=== PATIENT | male | born 1985 | race Caucasian/White ===

== ENCOUNTER 2019-01-20 19:43 | Emergency (ER) | payer OTHER ==
--- NOTE | 2019-01-20 20:46 | EDM.PDOC ---
ED HPI GENERAL MEDICAL PROBLEM - General Chief Complaint: Upper Extremity Injury/Pain Stated Complaint: LEFT WOOD PIECE IN PINKY Time Seen by Provider: 01/20/19 20:00 Source of Information: Reports: Patient History Limitations: Reports: No Limitations - History of Present Illness INITIAL COMMENTS - FREE TEXT/NARRATIVE: 33 year old male present to ear with possible splinted in his left fifth digit. Splinter occurred when he was working with newer treated wood. Patient felt something sharp across the upper fifth digit. Noticed blood and thought he had a residual splinter in her hand. Patient did not see wood or a splinter but pain has continued. Patient has washed the area but did not take any medications for pain. Injury happened this afternoon. Patient's last tetanus shot was approximately 5 years ago. - Related Data Allergies Allergy/AdvReac Type Severity Reaction Status Date / Time No Known Allergies Allergy Verified 01/20/19 20:06 Home Meds: Home Meds NK [No Known Home Meds] 01/20/19 [History] Past Medical History Neurological History: Reports: Brain Injury - Past Surgical History HEENT Surgical History: Reports: Tonsillectomy GI Surgical History: Reports: Hernia, Abdominal Social & Family History - Tobacco Use Smoking Status *Q: Never Smoker Review of Systems - Review of Systems Review Of Systems: ROS reveals no pertinent complaints other than HPI. ED EXAM, GENERAL - Physical Exam Exam: See Below Exam Limited By: No Limitations General Appearance: Alert, WD/WN, No Apparent Distress Eye Exam: Bilateral Eye: EOMI Head: Atraumatic, Normocephalic Neck: Normal Inspection, Supple, Non-Tender, Full Range of Motion Respiratory/Chest: No Respiratory Distress Cardiovascular: Normal Peripheral Pulses Extremities: Other (small puncture wound extensor surface of left fifth digit with pain across MCP joint. No palpable firm straight FB noted. Offered soft tissue US. ) Neurological: Alert, Oriented, CN II-XII Intact, Normal Cognition, Normal Gait, Normal Reflexes, No Motor/Sensory Deficits ED TRAUMA EXTREMITY PROCEDURES - Additional/Other Procedure(s) Other (Free Text) Procedure(s): Soft Tissue POC Ultrasound Left Hand: No radiolucent FB noted in painful area. No air in the tissue. Shared Decision Making: Discussed risks and benefits of local anesthetic and attempting to remove a FB which is no palpable or seen on ultrasound. I do not believe the pain to look of a possible wood FB would be beneficial at this time. Course - Vital Signs Last Recorded V/S: Last Vital Signs Temp 36.1 C 01/20/19 20:12 Pulse 87 01/20/19 20:12 Resp 14 01/20/19 20:12 BP 133/83 01/20/19 20:12 Pulse Ox 98 01/20/19 20:12 Departure - Departure Time of Disposition: 20:41 Disposition: Home, Self-Care 01 Clinical Impression: Superf injury finger-NEC, Splinter in skin, Puncture wound - Discharge Information Instructions: Puncture Wound Referrals: PCP,None [Primary Care Provider] - Forms: ED Department Discharge Additional Instructions: 1. Keep wound clean dry and covered if working out side. 2. Tylenol 500-1000mg every 6-8hours as needed for pain. 3. Ibuprofen 600-800mg every 6-8 hours with food for pain and inflammation. 4. Soak in warm soapy water to keep wound open and allow for drainage. 5. Monitor for signs of infection. 6. See PCP for recheck in 3-5 days if infection concerns. - Problem List & Annotations (1) Splinter in skin SNOMED Code(s): 192459295 Code(s): T14.8XXA - OTHER INJURY OF UNSPECIFIED BODY REGION, INITIAL ENCOUNTER Status: Acute (2) Superf injury finger-NEC SNOMED Code(s): 537206603 Code(s): S60.949A - UNSP SUPERFICIAL INJURY OF UNSPECIFIED FINGER, INIT ENCNTR Status: Acute
== END 2019-01-20 20:57 | disposition home or self-care (01) ==
LOC: JP.ED 19:43
DX: S61.247A Puncture wound with foreign body of left little finger without damage to nail, initial encounter (principal); W26.8XXA Contact with other sharp object(s), not elsewhere classified, initial encounter; Y93.89 Activity, other specified
CPT/HCPCS: 99283

== ENCOUNTER 2020-11-30 10:22 | Emergency (ER) | payer OTHER ==
[2020-11-30] MEDS ORDERED: Bacitracin Oint 1 GM U/D Packet TOP ONE (10:34)
[2020-11-30] MEDS ORDERED: Lidocaine 2% 20 ML MDV SUBCUT ONE (10:34)
--- NOTE | 2020-11-30 10:40 | EDM.PDOC ---
ED HPI GENERAL MEDICAL PROBLEM - General Chief Complaint: Upper Extremity Injury/Pain Stated Complaint: injured fingers on right hand Time Seen by Provider: 11/30/20 10:30 Source of Information: Reports: Patient, Old Records History Limitations: Reports: No Limitations - History of Present Illness INITIAL COMMENTS - FREE TEXT/NARRATIVE: 35 yo male dropped a log onto his R long finger before arrival. Not sure about tetanus. Had a lot of bleeding initially. Onset: Today, Sudden Onset Date: 11/30/20 Duration: Minutes:, Constant Location: Reports: Upper Extremity, Right Quality: Reports: Ache, Burning Severity: Moderate Improves with: Reports: None Worsens with: Reports: Other (touching wound) Context: Reports: Trauma Associated Symptoms: Reports: No Other Symptoms Treatments CHUTE BUILDER: Reports: Other (see below) (wrapped wound to control bleeding) RIGHT Middle finger Pain Score (Numeric/FACES): 8 - Related Data Allergies Allergy/AdvReac Type Severity Reaction Status Date / Time No Known Allergies Allergy Verified 11/30/20 10:40 Home Meds: Home Meds cephALEXin [Cephalexin] 500 mg PO QID #11 tablet 11/30/20 [Rx] Past Medical History Neurological History: Reports: Brain Injury - Past Surgical History HEENT Surgical History: Reports: Tonsillectomy GI Surgical History: Reports: Hernia, Abdominal Review of Systems - Review of Systems Review Of Systems: See Below Constitutional: Reports: No Symptoms Musculoskeletal: Reports: Hand Pain (R long finger distal injury) Skin: Reports: Wound (distal L long finger) Neurological: Reports: No Symptoms ED EXAM, GENERAL - Physical Exam Exam: See Below Exam Limited By: No Limitations General Appearance: Alert, WD/WN, No Apparent Distress Extremities: No Pedal Edema, Other (partially avulsed finger nail R long finger with lac. ) Neurological: Alert, Oriented, CN II-XII Intact, Normal Cognition, No Motor/Sensory Deficits Psychiatric: Normal Affect, Normal Mood Skin Exam: Warm, Dry, Normal Color, No Rash, Wound/Incision (lac of distal R long finger). No: Intact ED TRAUMA EXTREMITY PROCEDURES - Laceration/Wound Repair Right Distal Digit - 3rd (Middle) Lac/Wound Length In cm: 1.8 Appearance: Subcutaneous, Linear, Clean Distal NVT: Neuro & Vascular Intact, No Tendon Injury Anesthetic Type: Digital Local Anesthesia - Lidocaine (Xylocaine): 2% Plain Local Anesthetic Volume: Other (10 cc) Skin Prep: Other (soap and water) Exploration/Debridement/Repair: Wound Explored Closed With: Sutures Suture Size: 5-0 # of Sutures: 5 Suture Type: Nylon, Interrupted, Simple Drain Placement: No Sterile Dressing Applied: Nurse Tetanus Status Addressed: Yes Complications: No Progress/Comments: Nail removed from the nail bed. Tube gauze then applied per RN Course - Vital Signs Last Recorded V/S: Last Vital Signs Temp 36.1 C 11/30/20 10:44 Pulse 95 11/30/20 10:44 Resp 18 11/30/20 10:44 BP 160/96 H 11/30/20 10:44 Pulse Ox 99 11/30/20 10:44 - Orders/Labs/Meds Orders: Active Orders 24 hr Category Date Time Status Fingers Third Digit Rt F7 [CR] Stat Exams 11/30/20 10:40 Taken Meds: Medications Discontinued Medications Generic Name Dose Route Start Last Admin Trade Name Freq PRN Reason Stop Dose Admin Bacitracin 1 dose 11/30/20 10:34 11/30/20 10:41 Bacitracin Oint 1 Gm U/D Packet TOP 11/30/20 10:35 1 dose ONETIME ONE Administration Cephalexin 750 mg 11/30/20 11:02 11/30/20 11:21 Cephalexin 250 Mg Cap PO 11/30/20 11:03 750 mg ONETIME ONE Administration Lidocaine HCl 10 ml 11/30/20 10:34 11/30/20 10:42 Lidocaine 2% 20 Ml Mdv SUBCUT 11/30/20 10:35 10 ml ONETIME ONE Administration - Radiology Interpretation Free Text/Narrative:: R long finger X-ray-tuft fx Departure - Departure Time of Disposition: 11:35 Disposition: Home, Self-Care 01 Condition: Fair Clinical Impression: Open fracture of tuft of distal phalanx of finger Clinical Impression: (Ruled Out): Closed fracture of tuft of distal phalanx of finger - Discharge Information *PRESCRIPTION DRUG MONITORING PROGRAM REVIEWED*: Not Applicable *COPY OF PRESCRIPTION DRUG MONITORING REPORT IN PATIENT SUDHIR: Not Applicable Prescriptions: cephALEXin [Cephalexin] 500 mg PO QID #11 tablet Instructions: Finger Fracture, Adult Referrals: PCP,None [Primary Care Provider] - Forms: ED Department Discharge Additional Instructions: Take ibuprofen 600 mg every 6 hrs with food for pain relief. Add acetaminophen as needed up to 1000 mg every 6 hrs for pain relief. Take cephalexin every 6 hrs until gone to prevent infection. Clean your wound starting in 24 hrs with soap and water OR 1/2 water and 1/2 peroxide. Dry. Apply a liberal amount of antibiotic ointment and a new dressing(Telfa to prevent sticking). Elevate to reduce pain and bleeding. Keep wound clean. Stitches out in 10 days. Wear the splint for protection until your pain is gone. Recheck for signs of infection. Sepsis Event Note (ED) - Focused Exam Vital Signs: Vital Signs Temp Pulse Resp BP Pulse Ox 11/30/20 10:44 36.1 C 95 18 160/96 H 99 11/30/20 10:38 36.1 C 95 18 160/96 H 99 - My Orders Last 24 Hours: My Active Orders 11/30/20 10:40 Fingers Third Digit Rt F7 [CR] Stat - Assessment/Plan Last 24 Hours: My Active Orders 11/30/20 10:40 Fingers Third Digit Rt F7 [CR] Stat
[2020-11-30] MEDS ORDERED: Cephalexin 250 MG Cap PO ONE (11:02)
--- NOTE | 2020-12-01 13:21 | CR ---
Fingers Third Digit Rt F7 CLINICAL HISTORY: Crush injury FINDINGS: There is a comminuted tuft fracture of the third distal phalanx with slight palmar angulation IMPRESSION: Fracture
== END 2020-11-30 12:01 | disposition home or self-care (01) ==
LOC: JP.ED 10:22
DX: S62.632B Displaced fracture of distal phalanx of right middle finger, initial encounter for open fracture (principal); W20.8XXA Other cause of strike by thrown, projected or falling object, initial encounter
CPT/HCPCS: 12001; 73140; 99283; A9270